=== PATIENT | female | born 1970 | race Caucasian/White ===

== ENCOUNTER 2020-03-23 19:51 | Emergency (ER) | payer BC ==
[~2020-03-23] VITALS: Ht 170.2 cm; Wt 63.5 kg
[2020-03-23 20:05] VITALS: BP_SYST 122
--- NOTE | 2020-03-23 20:10 | NUR ---
Patient to ER bed 4 to gown for evaluation. Side rails up. Report given to JANUARY.
--- NOTE | 2020-03-23 20:14 | NUR ---
Patient came from home. C/O abdominal pain x today. Patient states " constipation, today abdominal pain, no passing gas, called PMD and recommended to go to ER, Last Bowel movement 14 days ago " Hx Lupus, ileostomy, Bilateral 1 rib removal, , Hysterectomy, Breast Augmentation, Rectopexy. A/O,X4, abdominal pain, pain rate 9/10, place patient on master yacht.
[2020-03-23] MEDS ORDERED: DICY10CA13 PO (20:39)
[2020-03-23] MEDS ORDERED: FLUD0.1T PO (20:39)
[2020-03-23] MEDS ORDERED: NEU400 PO (20:39)
[2020-03-23] MEDS ORDERED: HYDR2TAB4 PO (20:39)
[2020-03-23] MEDS ORDERED: HYOS0.1275 PO (20:39)
[2020-03-23] MEDS ORDERED: ALPR1TAB2 PO (20:39)
[2020-03-23] MEDS ORDERED: TIZA4TAB11 PO (20:39)
[2020-03-23] MEDS ORDERED: TRAZ300T2 PO (20:39)
[2020-03-23] MEDS ORDERED: METH12VI SQ (20:39)
[2020-03-23] MEDS ORDERED: MIDO10TA PO (20:39)
--- NOTE | 2020-03-23 20:39 | NUR ---
Medication reconciliation completed with information provided by patient. Any prior medication reconciliation on file was reviewed and corrected.
[2020-03-23] MEDS ORDERED: METOCLOPRAMIDE HCL 10 MG/2 ML VIAL IVP ONE (21:00)
--- NOTE | 2020-03-23 21:03 | NUR ---
Blood for labwork drawn from sample puller. Patient tolerated well.
[2020-03-23 21:14] LABS: BASOPHILS % (AUTO) 0.4 % (0.0-2.0); EOSINOPHILS # (AUTO) 0.1 K/uL (0.0-0.4); EOSINOPHILS % (AUTO) 1.2 % (0.0-4.0); HEMATOCRIT 37.2 % (36-48); HEMOGLOBIN 12.1 g/dL (12.0-16.0); LYMPHOCYTES # (AUTO) 0.9 K/uL (1.0-5.5); LYMPHOCYTES % (AUTO) 13.3 % (20.5-51.5); MEAN CORPUSCULAR HEMOGLOBIN 28 pg (27-31); MEAN CORPUSCULAR HGB CONC 33 % (32-36); MEAN CORPUSCULAR VOLUME 87 fL (79.0-98.0); MONOCYTES # (AUTO) 0.4 K/uL (0.0-1.0); MONOCYTES % (AUTO) 6.7 % (1.7-9.3); NEUTROPHILS # (AUTO) 5.1 K/uL (1.8-7.7); NEUTROPHILS % (AUTO) 78.4 % (40.0-70.0); PLATELET COUNT (AUTO) 355 K/uL (130-430); RED BLOOD CELL COUNT(AUTO) 4.28 MIL/uL (4.2-6.2); RED CELL DISTRIBUTION WIDTH 16.7 % (9.0-15.0); WHITE BLOOD COUNT (AUTO) 6.6 K/uL (4.8-10.8)
--- NOTE | 2020-03-23 21:20 | NUR ---
ER at bedside examining patient.
[2020-03-23] MEDS ORDERED: NACL 0.9% 1,000 ML IV ONE (21:30)
[2020-03-23] MEDS ORDERED: KETAMINE 30 MG/3 ML SYRINGE IVP ONE (21:30)
--- NOTE | 2020-03-23 21:59 | NUR ---
Patient came back from CT scan.
[2020-03-23 22:02] LABS: BILIRUBIN,URINE NEGATIVE (NEGATIVE); BLOOD, URINE NEGATIVE (NEGATIVE); COLOR,URINE YELLOW (YELLOW); GLUCOSE,URINE NEGATIVE (NEGATIVE); KETONES,URINE TRACE (NEGATIVE); LEUKOCYTE ESTERASE ,URINE NEGATIVE (NEGATIVE); NITRITE, URINE NEGATIVE (NEGATIVE); PROTEIN URINE TRACE (NEGATIVE); UROBILINOGEN,URINE 0.2 (0.2-1.0)
[2020-03-23 22:23] LABS: CALCIUM 8.6 mg/dL (8.4-11.0); CREATININE 0.91 mg/dL (0.55-1.30); POTASSIUM 3.9 mmol/L (3.5-5.1)
[2020-03-23 22:29] LABS: CLARITY/URINE HAZY (CLEAR)
[2020-03-23 22:34] LABS: ALBUMIN 3.2 g/dL (3.4-4.8); TOTAL BILIRUBIN 0.3 mg/dL (0.0-1.0)
[2020-03-23 22:47] LABS: BACTERIA,URINE FEW /HPF (None Seen); MUCUS,URINE 4+ /LPF (None Seen); RBC,URINE 0-3 /HPF (0-3); WBC,URINE 0-3 /HPF (0-3)
--- NOTE | 2020-03-23 23:27 | NUR ---
Patient called her for a ride.
--- NOTE | 2020-03-23 23:46 | NUR ---
Patient's family waited in lobby.
[2020-03-23 23:54] VITALS: BP_SYST 113
--- NOTE | 2020-03-23 23:54 | NUR ---
Patient given written and verbal discharge instructions and verbalizes understanding. ER MD discussed with patient the results and treatment provided. Patient in stable condition. ID arm band removed. IV catheter removed intact and dressing applied, no active bleeding. No Rx given. Patient educated on pain management and to follow up with PMD. Pain Scale 2/10. Opportunity for questions provided and answered. Medication side effect fact sheet provided.
== END 2020-03-23 23:54 | disposition home or self-care (01) ==
LOC: SED 19:51
DX: K59.00 Constipation, unspecified (principal); R10.84 Generalized abdominal pain; Z90.710 Acquired absence of both cervix and uterus; Z79.899 Other long term (current) drug therapy; Z88.6 Allergy status to analgesic agent
CPT/HCPCS: 36415; 74021; 80053; 81000; 81025; 83690; 84702; 85025; 96374; 96375; 99284; J2765; J7030

== ENCOUNTER 2021-05-08 19:08 | Inpatient (IN) | payer BC, SELFPAY ==
[~2021-05-08] VITALS: Ht 170.2 cm; Wt 66.2 kg
[~2021-05-08 19:08] MED LIST: ALPR1TAB2 PO; DICY10CA13 PO; FLUD0.1T PO; HYDR2TAB4 PO; HYOS0.1275 PO; METH12VI SQ; MIDO10TA PO; NEU400 PO; TRAZ300T2 PO; ZAN4 PO
[2021-05-08 19:17] VITALS: BP_SYST 112
[2021-05-08 21:26] LABS: BILIRUBIN,URINE NEGATIVE (NEGATIVE); BLOOD, URINE NEGATIVE (NEGATIVE); CLARITY/URINE CLEAR (CLEAR); COLOR,URINE YELLOW (YELLOW); GLUCOSE,URINE NEGATIVE (NEGATIVE); KETONES,URINE NEGATIVE (NEGATIVE); LEUKOCYTE ESTERASE ,URINE NEGATIVE (NEGATIVE); NITRITE, URINE NEGATIVE (NEGATIVE); PROTEIN URINE NEGATIVE (NEGATIVE); UROBILINOGEN,URINE 0.2 (0.2-1.0)
[2021-05-08 21:52] LABS: BASOPHILS % (AUTO) 0.5 % (0.0-2.0); EOSINOPHILS # (AUTO) 0.1 K/uL (0.0-0.4); EOSINOPHILS % (AUTO) 1.8 % (0.0-4.0); HEMATOCRIT 39.4 % (36-48); HEMOGLOBIN 13.1 g/dL (12.0-16.0); LYMPHOCYTES # (AUTO) 1.4 K/uL (1.0-5.5); LYMPHOCYTES % (AUTO) 25.3 % (20.5-51.5); MEAN CORPUSCULAR HEMOGLOBIN 28 pg (27-31); MEAN CORPUSCULAR HGB CONC 33 % (32-36); MEAN CORPUSCULAR VOLUME 83 fL (79.0-98.0); MONOCYTES # (AUTO) 0.3 K/uL (0.0-1.0); NEUTROPHILS # (AUTO) 3.6 K/uL (1.8-7.7); NEUTROPHILS % (AUTO) 67.4 % (40.0-70.0); PLATELET COUNT (AUTO) 306 K/uL (130-430); RED BLOOD CELL COUNT(AUTO) 4.75 MIL/uL (4.2-6.2); RED CELL DISTRIBUTION WIDTH 16.4 % (9.0-15.0); WHITE BLOOD COUNT (AUTO) 5.4 K/uL (4.8-10.8)
[2021-05-08] MEDS ORDERED: HYDROmorphone 1 MG/ML INJ. CARTRIDGE IVP ONE ×2 (22:00→23:45)
[2021-05-08] MEDS ORDERED: PROCHLORPERAZINE EDISYLATE 10 MG/2 ML VIAL IVP ONE (22:00)
[2021-05-08 22:06] LABS: CALCIUM 9.8 mg/dL (8.4-11.0); CREATININE 0.73 mg/dL (0.55-1.30)
[2021-05-08 22:11] LABS: ALBUMIN 3.5 g/dL (3.4-4.8); TOTAL BILIRUBIN 0.3 mg/dL (0.0-1.0)
[2021-05-09] MEDS ORDERED: NACL 0.9% 1,000 ML IV ONE (00:15)
[2021-05-09] MEDS ORDERED: ONDANSETRON HCL 4 MG/2 ML VIAL IVP ONE (00:15)
[2021-05-09] MEDS: D5/0.45 NS 1,000 ML IV SCH ×3 (00:58→20:45)
[2021-05-09 03:09] VITALS: BP_SYST 127
[2021-05-09] MEDS ORDERED: MIDO5TAB4 PO (03:36)
[2021-05-09] MEDS ORDERED: TRAZ150T77 PO (03:36)
[2021-05-09] MEDS ORDERED: FLOR.1 PO (03:36)
[2021-05-09] MEDS ORDERED: HYDROmorphone 1 MG/ML INJ. CARTRIDGE IVP PRN (04:00)
[2021-05-09] MEDS ORDERED: ONDANSETRON HCL 4 MG/2 ML VIAL IVP PRN (04:00)
[2021-05-09] MEDS: HYDROmorphone 2 MG/ML VIAL IVP PRN ×4 (04:17→21:26)
[2021-05-09 06:19] LABS: BASOPHILS % (AUTO) 0.4 % (0.0-2.0); EOSINOPHILS # (AUTO) 0.1 K/uL (0.0-0.4); EOSINOPHILS % (AUTO) 2.9 % (0.0-4.0); HEMATOCRIT 34.9 % (36-48); HEMOGLOBIN 11.7 g/dL (12.0-16.0); LYMPHOCYTES # (AUTO) 1.7 K/uL (1.0-5.5); LYMPHOCYTES % (AUTO) 34.6 % (20.5-51.5); MEAN CORPUSCULAR HEMOGLOBIN 28 pg (27-31); MEAN CORPUSCULAR HGB CONC 33 % (32-36); MEAN CORPUSCULAR VOLUME 84 fL (79.0-98.0); MONOCYTES # (AUTO) 0.3 K/uL (0.0-1.0); NEUTROPHILS # (AUTO) 2.7 K/uL (1.8-7.7); NEUTROPHILS % (AUTO) 56.1 % (40.0-70.0); PLATELET COUNT (AUTO) 289 K/uL (130-430); RED BLOOD CELL COUNT(AUTO) 4.17 MIL/uL (4.2-6.2); RED CELL DISTRIBUTION WIDTH 16.4 % (9.0-15.0); WHITE BLOOD COUNT (AUTO) 4.8 K/uL (4.8-10.8)
[2021-05-09 06:48] LABS: ALBUMIN 2.8 g/dL (3.4-4.8); CALCIUM 8.3 mg/dL (8.4-11.0); CREATININE 0.66 mg/dL (0.55-1.30); POTASSIUM 3.9 mmol/L (3.5-5.1); TOTAL BILIRUBIN 0.3 mg/dL (0.0-1.0)
[2021-05-09] MEDS ORDERED: ACETAMINOPHEN 325 MG TABLET PO PRN (07:15)
[2021-05-09] MEDS ORDERED: DOCUSATE SODIUM 100 MG CAPSULE PO PRN (07:15)
[2021-05-09] MEDS ORDERED: HYOSCYAMINE SULFATE 0.125 MG TABLET PO PRN (07:15)
[2021-05-09] MEDS ORDERED: MIDAZOLAM HCL 5 MG/5 ML VIAL IVP ONE (07:50)
[2021-05-09] MEDS ORDERED: LIDOCAINE HCL/PF 1% 10 ML AMPUL INJ ONE (07:50)
[2021-05-09] MEDS ORDERED: PROPOFOL 200MG/ 20ML VIAL (DIPRIVAN) IV ONE (07:50)
[2021-05-09] MEDS ORDERED: NS 1000 ML IV.SOLN IV ONE (07:50)
[2021-05-09 08:22] VITALS: BP_SYST 118
[2021-05-09] MEDS ORDERED: GASTROGRAFIN 120 ML ONE ×2 (08:28→08:35)
[2021-05-09] MEDS ORDERED: METHYLNALTREXONE BROMIDE SQ SCH (09:00)
[2021-05-09 09:08] LABS: THYROID STIMULATING HORMONE 9.13 uIu/mL (0.36-3.74)
[2021-05-09] MEDS: ONDANSETRON HCL 4 MG/2 ML VIAL IVP PRN ×2 (10:24→17:27)
[2021-05-09] MEDS: FLUDROCORTISONE ACETATE 0.1 MG TABLET( FLORINEF) PO SCH (11:11)
[2021-05-09] MEDS: MIDODRINE HCL 5 MG TABLET (PROAMATINE) PO SCH (11:12)
[2021-05-09] MEDS: DICYCLOMINE HCL 10 MG CAPSULE PO SCH ×4 (11:13→21:01)
[2021-05-09] MEDS: GABAPENTIN 300 MG CAPSULE PO SCH ×3 (11:13→21:01)
[2021-05-09] MEDS: ALPRAZolam 0.25 MG TABLET PO SCH ×2 (11:13→21:02)
[2021-05-09] MEDS: tiZANidine HCL 4 MG TABLET PO SCH ×3 (11:18→21:02)
[2021-05-09] MEDS ORDERED: POLYETHYLENE GLYCOL 3350, 17 GM/ POWD.PACK PO ONE (11:45)
[2021-05-09 15:22] VITALS: BP_SYST 115
[2021-05-09 16:00] VITALS: BP_SYST 112
[2021-05-09] MEDS ORDERED: KETOROLAC TROMETHAMINE 30 MG VIAL IVP ONE (19:45)
[2021-05-09 20:00] VITALS: BP_SYST 133
[2021-05-09] MEDS: POLYETHYLENE GLYCOL 3350, 17 GM/ POWD.PACK PO SCH (21:02)
[2021-05-10] VITALS: BP_SYST 122
[2021-05-10] MEDS: HYDROmorphone 1 MG/ML INJ. CARTRIDGE IVP PRN ×2 (00:18→20:44)
[2021-05-10] MEDS: ONDANSETRON HCL 4 MG/2 ML VIAL IVP PRN ×3 (00:19→12:15)
[2021-05-10] MEDS: HYDROmorphone 2 MG/ML VIAL IVP PRN ×4 (02:18→15:14)
[2021-05-10] MEDS: D5/0.45 NS 1,000 ML IV SCH ×2 (06:16→16:57)
[2021-05-10 07:06] LABS: BASOPHILS % (AUTO) 0.6 % (0.0-2.0); CALCIUM 8.6 mg/dL (8.4-11.0); CREATININE 0.69 mg/dL (0.55-1.30); EOSINOPHILS # (AUTO) 0.1 K/uL (0.0-0.4); EOSINOPHILS % (AUTO) 3.1 % (0.0-4.0); HEMATOCRIT 40.8 % (36-48); HEMOGLOBIN 13.3 g/dL (12.0-16.0); LYMPHOCYTES # (AUTO) 1.1 K/uL (1.0-5.5); LYMPHOCYTES % (AUTO) 23.4 % (20.5-51.5); MEAN CORPUSCULAR HEMOGLOBIN 28 pg (27-31); MEAN CORPUSCULAR HGB CONC 33 % (32-36); MEAN CORPUSCULAR VOLUME 85 fL (79.0-98.0); MONOCYTES # (AUTO) 0.4 K/uL (0.0-1.0); NEUTROPHILS % (AUTO) 64.9 % (40.0-70.0); PHOSPHORUS 4.8 mg/dL (2.7-4.5); PLATELET COUNT (AUTO) 314 K/uL (130-430); POTASSIUM 3.3 mmol/L (3.5-5.1); RED BLOOD CELL COUNT(AUTO) 4.82 MIL/uL (4.2-6.2); RED CELL DISTRIBUTION WIDTH 16.1 % (9.0-15.0); WHITE BLOOD COUNT (AUTO) 4.7 K/uL (4.8-10.8)
[2021-05-10] MEDS: ALPRAZolam 0.25 MG TABLET PO SCH ×3 (09:00→20:46)
[2021-05-10 10:11] VITALS: BP_SYST 131
[2021-05-10] MEDS: POLYETHYLENE GLYCOL 3350, 17 GM/ POWD.PACK PO SCH (10:23)
[2021-05-10] MEDS: GABAPENTIN 300 MG CAPSULE PO SCH ×3 (10:23→20:46)
[2021-05-10] MEDS: FLUDROCORTISONE ACETATE 0.1 MG TABLET( FLORINEF) PO SCH (10:24)
[2021-05-10] MEDS: MIDODRINE HCL 5 MG TABLET (PROAMATINE) PO SCH (10:24)
[2021-05-10] MEDS: tiZANidine HCL 4 MG TABLET PO SCH ×3 (10:25→21:09)
[2021-05-10] MEDS: DICYCLOMINE HCL 10 MG CAPSULE PO SCH ×4 (10:25→20:46)
[2021-05-10] MEDS ORDERED: POTASSIUM CHLORIDE 20 MEQ/PKT PACKET PO ONE (14:15)
[2021-05-10] MEDS ORDERED: MAGNESIUM CITRATE 300 ML ORAL SOLUTION PO ONE (16:30)
[2021-05-10] MEDS ORDERED: PANTOPRAZOLE SODIUM 40 MG/VIAL (PROTONIX) IVP ONE (16:30)
[2021-05-10 20:00] VITALS: BP_SYST 128
[2021-05-10] MEDS: SIMETHICONE 80 MG TAB.CHEW PO SCH (20:44)
[2021-05-11] VITALS (7 sets, daily range): BP systolic 122–160
[2021-05-11] MEDS: HYDROmorphone 2 MG/ML VIAL IVP PRN ×5 (02:38→21:57)
[2021-05-11] MEDS: D5/0.45 NS 1,000 ML IV SCH ×3 (03:46→22:10)
[2021-05-11] MEDS: ONDANSETRON HCL 4 MG/2 ML VIAL IVP PRN ×2 (05:52→21:54)
[2021-05-11] MEDS: PANTOPRAZOLE SODIUM 40 MG/VIAL (PROTONIX) IVP SCH (10:36)
[2021-05-11] MEDS: FLUDROCORTISONE ACETATE 0.1 MG TABLET( FLORINEF) PO SCH (10:37)
[2021-05-11] MEDS: MIDODRINE HCL 5 MG TABLET (PROAMATINE) PO SCH (10:37)
[2021-05-11] MEDS: DICYCLOMINE HCL 10 MG CAPSULE PO SCH ×2 (10:37→21:40)
[2021-05-11] MEDS: SIMETHICONE 80 MG TAB.CHEW PO SCH ×3 (10:38→21:41)
[2021-05-11] MEDS: ALPRAZolam 0.25 MG TABLET PO SCH ×2 (10:38→21:41)
[2021-05-11] MEDS: POLYETHYLENE GLYCOL 3350, 17 GM/ POWD.PACK PO SCH (10:38)
[2021-05-11] MEDS: GABAPENTIN 300 MG CAPSULE PO SCH ×3 (10:38→21:41)
[2021-05-11] MEDS: tiZANidine HCL 4 MG TABLET PO SCH ×3 (11:40→21:41)
[2021-05-11] MEDS ORDERED: DICYCLOMINE HCL 10 MG CAPSULE PO ONE (13:45)
[2021-05-11] MEDS ORDERED: POTASSIUM CHLORIDE 10 MEQ TAB.PRT.SR PO ONE (19:30)
[2021-05-11] MEDS: ZOLPIDEM TARTRATE 5 MG TABLET PO PRN (21:42)
[2021-05-12] VITALS: BP_SYST 126
[2021-05-12] MEDS: HYDROmorphone 2 MG/ML VIAL IVP PRN ×3 (02:10→20:09)
[2021-05-12] MEDS: D5/0.45 NS 1,000 ML IV SCH ×2 (06:16→20:04)
[2021-05-12] MEDS: ONDANSETRON HCL 4 MG/2 ML VIAL IVP PRN (06:25)
[2021-05-12 07:23] LABS: CALCIUM 8.3 mg/dL (8.4-11.0); CREATININE 0.64 mg/dL (0.55-1.30); PHOSPHORUS 3.4 mg/dL (2.7-4.5); POTASSIUM 3.7 mmol/L (3.5-5.1)
[2021-05-12 08:00] VITALS: BP_SYST 119
[2021-05-12 08:26] LABS: BASOPHILS % (AUTO) 0.7 % (0.0-2.0); EOSINOPHILS # (AUTO) 0.5 K/uL (0.0-0.4); EOSINOPHILS % (AUTO) 11.1 % (0.0-4.0); HEMATOCRIT 34.2 % (36-48); HEMOGLOBIN 11.2 g/dL (12.0-16.0); LYMPHOCYTES # (AUTO) 1.7 K/uL (1.0-5.5); LYMPHOCYTES % (AUTO) 36.9 % (20.5-51.5); MEAN CORPUSCULAR HEMOGLOBIN 28 pg (27-31); MEAN CORPUSCULAR HGB CONC 33 % (32-36); MEAN CORPUSCULAR VOLUME 85 fL (79.0-98.0); MONOCYTES # (AUTO) 0.4 K/uL (0.0-1.0); MONOCYTES % (AUTO) 7.9 % (1.7-9.3); NEUTROPHILS % (AUTO) 43.4 % (40.0-70.0); PLATELET COUNT (AUTO) 266 K/uL (130-430); RED CELL DISTRIBUTION WIDTH 16.4 % (9.0-15.0); WHITE BLOOD COUNT (AUTO) 4.6 K/uL (4.8-10.8)
[2021-05-12] MEDS: GABAPENTIN 300 MG CAPSULE PO SCH ×3 (10:22→20:51)
[2021-05-12] MEDS: MIDODRINE HCL 5 MG TABLET (PROAMATINE) PO SCH (10:22)
[2021-05-12] MEDS: SIMETHICONE 80 MG TAB.CHEW PO SCH ×3 (10:22→20:51)
[2021-05-12] MEDS: DICYCLOMINE HCL 10 MG CAPSULE PO SCH ×2 (10:22→20:51)
[2021-05-12] MEDS: ALPRAZolam 0.25 MG TABLET PO SCH ×2 (10:22→20:51)
[2021-05-12] MEDS: tiZANidine HCL 4 MG TABLET PO SCH ×3 (10:22→20:51)
[2021-05-12] MEDS: POLYETHYLENE GLYCOL 3350, 17 GM/ POWD.PACK PO SCH (10:22)
[2021-05-12] MEDS: PANTOPRAZOLE SODIUM 40 MG/VIAL (PROTONIX) IVP SCH (10:25)
[2021-05-12] MEDS: FLUDROCORTISONE ACETATE 0.1 MG TABLET( FLORINEF) PO SCH (10:25)
[2021-05-12 12:00] VITALS: BP_SYST 158
[2021-05-12 16:00] VITALS: BP_SYST 159
[2021-05-12] MEDS ORDERED: BISACODYL 5 MG TABLET.DR (DULCOLAX) PO ONE (17:00)
[2021-05-13] MEDS: HYDROmorphone 2 MG/ML VIAL IVP PRN ×4 (00:04→20:17)
[2021-05-13] MEDS: ZOLPIDEM TARTRATE 5 MG TABLET PO PRN ×2 (00:15→21:52)
[2021-05-13 00:54] VITALS: BP_SYST 129
[2021-05-13] MEDS ORDERED: HYDROmorphone 2 MG/ML VIAL IVP ONE (05:45)
[2021-05-13 06:43] LABS: BASOPHILS % (AUTO) 0.4 % (0.0-2.0); EOSINOPHILS # (AUTO) 0.3 K/uL (0.0-0.4); EOSINOPHILS % (AUTO) 5.7 % (0.0-4.0); HEMATOCRIT 36.2 % (36-48); HEMOGLOBIN 11.9 g/dL (12.0-16.0); LYMPHOCYTES # (AUTO) 1.8 K/uL (1.0-5.5); LYMPHOCYTES % (AUTO) 29.5 % (20.5-51.5); MEAN CORPUSCULAR HEMOGLOBIN 28 pg (27-31); MEAN CORPUSCULAR HGB CONC 33 % (32-36); MEAN CORPUSCULAR VOLUME 84 fL (79.0-98.0); MONOCYTES # (AUTO) 0.4 K/uL (0.0-1.0); MONOCYTES % (AUTO) 6.3 % (1.7-9.3); NEUTROPHILS # (AUTO) 3.5 K/uL (1.8-7.7); NEUTROPHILS % (AUTO) 58.1 % (40.0-70.0); PLATELET COUNT (AUTO) 336 K/uL (130-430); RED BLOOD CELL COUNT(AUTO) 4.33 MIL/uL (4.2-6.2); RED CELL DISTRIBUTION WIDTH 16.1 % (9.0-15.0); WHITE BLOOD COUNT (AUTO) 6.1 K/uL (4.8-10.8)
[2021-05-13 07:18] LABS: CALCIUM 8.3 mg/dL (8.4-11.0); CREATININE 0.71 mg/dL (0.55-1.30); PHOSPHORUS 2.9 mg/dL (2.7-4.5); POTASSIUM 3.2 mmol/L (3.5-5.1)
[2021-05-13] MEDS: D5/0.45 NS 1,000 ML IV SCH ×2 (07:49→11:27)
[2021-05-13 08:00] VITALS: BP_SYST 135
[2021-05-13] MEDS: PANTOPRAZOLE SODIUM 40 MG/VIAL (PROTONIX) IVP SCH (08:45)
[2021-05-13] MEDS: DICYCLOMINE HCL 10 MG CAPSULE PO SCH ×2 (08:46→21:52)
[2021-05-13] MEDS: ALPRAZolam 0.25 MG TABLET PO SCH ×2 (08:46→21:52)
[2021-05-13] MEDS: MIDODRINE HCL 5 MG TABLET (PROAMATINE) PO SCH (08:47)
[2021-05-13] MEDS: POLYETHYLENE GLYCOL 3350, 17 GM/ POWD.PACK PO SCH (08:47)
[2021-05-13] MEDS: SIMETHICONE 80 MG TAB.CHEW PO SCH ×3 (08:47→21:52)
[2021-05-13] MEDS: FLUDROCORTISONE ACETATE 0.1 MG TABLET( FLORINEF) PO SCH (08:48)
[2021-05-13] MEDS: GABAPENTIN 300 MG CAPSULE PO SCH ×3 (08:48→21:51)
[2021-05-13] MEDS: tiZANidine HCL 4 MG TABLET PO SCH ×3 (08:48→21:51)
[2021-05-13] MEDS ORDERED: POLYETHYLENE GLYCOL 3350, 17 GM/ POWD.PACK PO ONE (12:00)
[2021-05-13 12:02] VITALS: BP_SYST 152
[2021-05-13] MEDS ORDERED: POTASSIUM CHLORIDE 20 MEQ/PKT PACKET PO ONE (12:15)
[2021-05-13] MEDS: ONDANSETRON HCL 4 MG/2 ML VIAL IVP PRN (14:29)
[2021-05-13 16:01] VITALS: BP_SYST 151
[2021-05-13] MEDS ORDERED: BISACODYL 5 MG TABLET.DR (DULCOLAX) PO ONE (17:00)
[2021-05-13] MEDS ORDERED: MAGNESIUM CITRATE 300 ML ORAL SOLUTION PO ONE (19:00)
[2021-05-13 20:00] VITALS: BP_SYST 141
[2021-05-14] VITALS: BP_SYST 129
[2021-05-14] MEDS: HYDROmorphone 2 MG/ML VIAL IVP PRN ×2 (00:32→06:42)
[2021-05-14 07:56] LABS: BASOPHILS % (AUTO) 0.8 % (0.0-2.0); EOSINOPHILS # (AUTO) 0.3 K/uL (0.0-0.4); EOSINOPHILS % (AUTO) 5.5 % (0.0-4.0); HEMATOCRIT 39.6 % (36-48); HEMOGLOBIN 13.1 g/dL (12.0-16.0); LYMPHOCYTES # (AUTO) 1.5 K/uL (1.0-5.5); MEAN CORPUSCULAR HEMOGLOBIN 28 pg (27-31); MEAN CORPUSCULAR HGB CONC 33 % (32-36); MEAN CORPUSCULAR VOLUME 84 fL (79.0-98.0); MONOCYTES # (AUTO) 0.3 K/uL (0.0-1.0); MONOCYTES % (AUTO) 5.5 % (1.7-9.3); NEUTROPHILS # (AUTO) 3.2 K/uL (1.8-7.7); NEUTROPHILS % (AUTO) 60.2 % (40.0-70.0); PLATELET COUNT (AUTO) 306 K/uL (130-430); RED CELL DISTRIBUTION WIDTH 16.2 % (9.0-15.0); WHITE BLOOD COUNT (AUTO) 5.3 K/uL (4.8-10.8)
[2021-05-14 07:59] LABS: CALCIUM 8.8 mg/dL (8.4-11.0); CREATININE 0.68 mg/dL (0.55-1.30); PHOSPHORUS 3.6 mg/dL (2.7-4.5); POTASSIUM 3.4 mmol/L (3.5-5.1)
[2021-05-14 08:00] VITALS: BP_SYST 137
[2021-05-14] MEDS: PANTOPRAZOLE SODIUM 40 MG/VIAL (PROTONIX) IVP SCH (08:27)
[2021-05-14] MEDS: DICYCLOMINE HCL 10 MG CAPSULE PO SCH ×2 (08:27→21:21)
[2021-05-14] MEDS: GABAPENTIN 300 MG CAPSULE PO SCH ×3 (08:27→21:19)
[2021-05-14] MEDS: FLUDROCORTISONE ACETATE 0.1 MG TABLET( FLORINEF) PO SCH (08:28)
[2021-05-14] MEDS: POLYETHYLENE GLYCOL 3350, 17 GM/ POWD.PACK PO SCH (08:28)
[2021-05-14] MEDS: tiZANidine HCL 4 MG TABLET PO SCH ×3 (08:29→21:21)
[2021-05-14] MEDS: ALPRAZolam 0.25 MG TABLET PO SCH ×2 (08:29→21:20)
[2021-05-14] MEDS: SIMETHICONE 80 MG TAB.CHEW PO SCH ×3 (08:29→21:20)
[2021-05-14] MEDS: MIDODRINE HCL 5 MG TABLET (PROAMATINE) PO SCH (08:40)
[2021-05-14] MEDS: ONDANSETRON HCL 4 MG/2 ML VIAL IVP PRN (08:40)
[2021-05-14] MEDS ORDERED: ACETAMINOPHEN 325 MG TABLET PO PRN (09:00)
[2021-05-14] MEDS ORDERED: SORBITOL 70% SOLUTION, 30 ML UDBTL PO ONE (09:00)
[2021-05-14] MEDS ORDERED: ONDANSETRON HCL 4 MG/2 ML VIAL IVP PRN (09:00)
[2021-05-14] MEDS ORDERED: MAGNESIUM CITRATE 300 ML ORAL SOLUTION PO SCH (09:00)
[2021-05-14] MEDS ORDERED: POTASSIUM CHLORIDE 20 MEQ TAB.PRT.SR PO ONE (09:00)
[2021-05-14] MEDS ORDERED: ZOLPIDEM TARTRATE 5 MG TABLET PO PRN (09:00)
[2021-05-14] MEDS ORDERED: MAGNESIUM SULFATE 50 ML IV PRN (09:00)
[2021-05-14] MEDS: POTASSIUM CHLORIDE 20 MEQ TAB.PRT.SR PO SCH (09:00)
[2021-05-14] MEDS ORDERED: DOCUSATE SODIUM 100 MG CAPSULE PO PRN (09:00)
[2021-05-14] MEDS ORDERED: MUPIROCIN 2% TOPICAL OINTMENT 22 GM NS PRN (09:00)
[2021-05-14] MEDS ORDERED: POLYETHYLENE GLYCOL 3350, 17 GM/ POWD.PACK PO ONE (09:00)
[2021-05-14] MEDS ORDERED: BISACODYL 5 MG TABLET.DR (DULCOLAX) PO SCH (09:00)
[2021-05-14] MEDS ORDERED: NALOXONE HCL 0.4 MG/ML AMP (NARCAN) IVP PRN (09:15)
[2021-05-14] MEDS: D5/0.45 NS 1,000 ML IV SCH ×2 (10:38→20:05)
[2021-05-14] MEDS: HYDROmorphone 1 MG/ML INJ. CARTRIDGE IVP PRN ×2 (13:25→19:53)
[2021-05-14 16:51] LABS: BARBITURATE, URINE NEGATIVE (NEG <=200); BENZODIAZEPINE, URINE POSITIVE (NEG <=150); CANNABINOID, URINE NEGATIVE (NEG <=50); COCAINE, URINE NEGATIVE (NEG <=150); METHAMPHETAMINES SCREEN,URINE NEGATIVE (NEG <=500); OPIATE, URINE POSITIVE (NEG <=100); PHENCYCLIDINE SCREEN,URINE NEGATIVE (NEG <=25); UR TRICYCLIC ANTIDEPRESSANTS NEGATIVE (NEG <=300); URINE AMPHETAMINE NEGATIVE (NEG <=500); URINE METHADONE NEGATIVE (NEG <=200); URINE OXYCODONE SCREEN NEGATIVE (NEG <=100); URINE PROPOXYPHENE SCREEN NEGATIVE (NEG <=300)
[2021-05-14] MEDS ORDERED: MAGNESIUM CITRATE 300 ML ORAL SOLUTION PO ONE (18:00)
[2021-05-14 19:49] VITALS: BP_SYST 129
[2021-05-15 01:42] VITALS: BP_SYST 114
[2021-05-15] MEDS: HYDROmorphone 1 MG/ML INJ. CARTRIDGE IVP PRN ×3 (01:47→16:23)
[2021-05-15] MEDS: ZOLPIDEM TARTRATE 5 MG TABLET PO PRN (02:43)
[2021-05-15] MEDS: D5/0.45 NS 1,000 ML IV SCH (06:49)
[2021-05-15] MEDS ORDERED: SIMETHICONE 40 MG/0.6 ML ML ONE (07:12)
[2021-05-15 07:51] LABS: BASOPHILS % (AUTO) 0.2 % (0.0-2.0); EOSINOPHILS # (AUTO) 0.2 K/uL (0.0-0.4); HEMATOCRIT 36.5 % (36-48); HEMOGLOBIN 12.1 g/dL (12.0-16.0); LYMPHOCYTES # (AUTO) 1.4 K/uL (1.0-5.5); LYMPHOCYTES % (AUTO) 28.7 % (20.5-51.5); MEAN CORPUSCULAR HEMOGLOBIN 28 pg (27-31); MEAN CORPUSCULAR HGB CONC 33 % (32-36); MEAN CORPUSCULAR VOLUME 84 fL (79.0-98.0); MONOCYTES # (AUTO) 0.3 K/uL (0.0-1.0); MONOCYTES % (AUTO) 6.3 % (1.7-9.3); NEUTROPHILS # (AUTO) 2.9 K/uL (1.8-7.7); NEUTROPHILS % (AUTO) 59.8 % (40.0-70.0); PLATELET COUNT (AUTO) 278 K/uL (130-430); RED BLOOD CELL COUNT(AUTO) 4.35 MIL/uL (4.2-6.2); WHITE BLOOD COUNT (AUTO) 4.9 K/uL (4.8-10.8)
[2021-05-15 08:09] LABS: CALCIUM 8.3 mg/dL (8.4-11.0); CREATININE 0.66 mg/dL (0.55-1.30); POTASSIUM 3.1 mmol/L (3.5-5.1)
[2021-05-15] MEDS ORDERED: ONDANSETRON HCL 4 MG/2 ML VIAL IVP PRN (09:00)
[2021-05-15] MEDS: POLYETHYLENE GLYCOL 3350, 17 GM/ POWD.PACK PO SCH (09:00)
[2021-05-15 09:32] VITALS: BP_SYST 161
[2021-05-15] MEDS: PANTOPRAZOLE SODIUM 40 MG/VIAL (PROTONIX) IVP SCH (10:30)
[2021-05-15] MEDS: FLUDROCORTISONE ACETATE 0.1 MG TABLET( FLORINEF) PO SCH (10:31)
[2021-05-15] MEDS: POTASSIUM CHLORIDE 20 MEQ TAB.PRT.SR PO SCH (10:31)
[2021-05-15] MEDS: GABAPENTIN 300 MG CAPSULE PO SCH ×2 (10:31→15:16)
[2021-05-15] MEDS: DICYCLOMINE HCL 10 MG CAPSULE PO SCH (10:31)
[2021-05-15] MEDS: ALPRAZolam 0.25 MG TABLET PO SCH (10:31)
[2021-05-15] MEDS: tiZANidine HCL 4 MG TABLET PO SCH ×2 (10:32→15:16)
[2021-05-15] MEDS: SIMETHICONE 80 MG TAB.CHEW PO SCH ×2 (10:32→15:15)
[2021-05-15] MEDS: MIDODRINE HCL 5 MG TABLET (PROAMATINE) PO SCH (11:01)
[2021-05-15 12:08] VITALS: BP_SYST 165
[2021-05-15 15:23] VITALS: BP_SYST 157
== END 2021-05-15 17:40 | disposition home or self-care (01) | DRG 392 ==
LOC: SED 19:08 → SMU 05-09 00:36
PROVIDERS: ADMIT Family Medicine; ATTEND Family Medicine
PROC: 05HY33Z Insertion of Infusion Device into Upper Vein, Percutaneous Approach (ICD-10-PCS; 2021-05-12)
PROC: B54MZZA Ultrasonography of Right Upper Extremity Veins, Guidance (ICD-10-PCS; 2021-05-12)
PROC: 0DB68ZX Excision of Stomach, Via Natural or Artificial Opening Endoscopic, Diagnostic (ICD-10-PCS; 2021-05-15)
PROC: 0DB58ZX Excision of Esophagus, Via Natural or Artificial Opening Endoscopic, Diagnostic (ICD-10-PCS; 2021-05-15)
PROC: 0DJD8ZZ Inspection of Lower Intestinal Tract, Via Natural or Artificial Opening Endoscopic (ICD-10-PCS; principal; 2021-05-15 07:30)
PROC: 0DB98ZX Excision of Duodenum, Via Natural or Artificial Opening Endoscopic, Diagnostic (ICD-10-PCS; 2021-05-15 07:30)
DX: K59.03 Drug induced constipation (principal); F11.20 Opioid dependence, uncomplicated; K62.6 Ulcer of anus and rectum; K56.7 Ileus, unspecified; Q43.8 Other specified congenital malformations of intestine; K21.00 Gastro-esophageal reflux disease with esophagitis, without bleeding; K59.09 Other constipation; T40.2X5A Adverse effect of other opioids, initial encounter; K29.70 Gastritis, unspecified, without bleeding; K64.8 Other hemorrhoids; F41.1 Generalized anxiety disorder; G89.4 Chronic pain syndrome; Z20.822 Contact with and (suspected) exposure to COVID-19; Z88.0 Allergy status to penicillin; Z90.49 Acquired absence of other specified parts of digestive tract; Z88.2 Allergy status to sulfonamides; Z88.5 Allergy status to narcotic agent; Z88.8 Allergy status to other drugs, medicaments and biological substances; Z90.710 Acquired absence of both cervix and uterus; Z98.891 History of uterine scar from previous surgery
CPT/HCPCS: 36415; 71045; 74018; 74250-TC; 76376; 80048; 80053; 80061; 80307; 81003; 82150; 83036; 83690; 83735; 83880; 84100; 84439; 84443; 85025; 85610-TC; 85730-TC; 87081; 88305; 88312; 88313; 93005; 96374; 96375; 96376; 99285; C9113; J0780; J1170; J1885; J2001; J2250; J2405; J2704; J7030; Q9963

== ENCOUNTER 2021-11-07 19:35 | Emergency (ER) | payer BC, SELFPAY ==
[~2021-11-07 19:35] MED LIST changes: +FLOR.1 PO; -FLUD0.1T PO; -MIDO10TA PO; +MIDO5TAB4 PO; +TRAZ150T77 PO; -TRAZ300T2 PO
[2021-11-08] MEDS ORDERED: HYDROmorphone 1 MG/ML INJ. CARTRIDGE ONE (01:23)
== END 2021-11-07 19:50 | disposition left against medical advice (07) ==
LOC: CANPREER → SED 19:35
DX: R51.9 Headache, unspecified (principal); Z53.21 Procedure and treatment not carried out due to patient leaving prior to being seen by health care provider
CPT/HCPCS: J1170

== ENCOUNTER 2021-11-07 20:32 | Inpatient (IN) | payer BC, SELFPAY ==
[~2021-11-07] VITALS: Ht 170.2 cm; Wt 71.7 kg
[2021-11-07 20:48] VITALS: BP_SYST 123
--- NOTE | 2021-11-07 21:13 | NUR ---
Placed in room 3 . Placed on panel monitor, blood pressure machine and pulse oximeter. To gown for exam. Side rails up.
--- NOTE | 2021-11-07 21:31 | NUR ---
PT A&O X4, VERBAL, AMBULATORY, NO SOB/ DISTRESS, WITH C/O HEADACHE FOR ABOUT 24HRS NOW, PT STATED THAT SHE TOOK ALL HER MEDICATIONS FOR HEADACHE & NOT WORKING.
[2021-11-07] MEDS ORDERED: NACL 0.9% 1,000 ML IV ONE (22:30)
[2021-11-07] MEDS ORDERED: KETOROLAC TROMETHAMINE 30 MG VIAL IVP ONE (22:30)
[2021-11-07 23:29] LABS: BASOPHILS % (AUTO) 0.5 % (0.0-2.0); EOSINOPHILS # (AUTO) 0.1 K/uL (0.0-0.4); EOSINOPHILS % (AUTO) 0.9 % (0.0-4.0); HEMOGLOBIN 13.2 g/dL (12.0-16.0); LYMPHOCYTES # (AUTO) 1.4 K/uL (1.0-5.5); LYMPHOCYTES % (AUTO) 22.7 % (20.5-51.5); MEAN CORPUSCULAR HEMOGLOBIN 26 pg (27-31); MEAN CORPUSCULAR HGB CONC 32 % (32-36); MEAN CORPUSCULAR VOLUME 81 fL (79.0-98.0); MONOCYTES # (AUTO) 0.3 K/uL (0.0-1.0); MONOCYTES % (AUTO) 5.1 % (1.7-9.3); NEUTROPHILS # (AUTO) 4.3 K/uL (1.8-7.7); NEUTROPHILS % (AUTO) 70.8 % (40.0-70.0); PLATELET COUNT (AUTO) 339 K/uL (130-430); RED BLOOD CELL COUNT(AUTO) 5.07 MIL/uL (4.2-6.2); RED CELL DISTRIBUTION WIDTH 16.7 % (9.0-15.0); WHITE BLOOD COUNT (AUTO) 6.1 K/uL (4.8-10.8)
[2021-11-07 23:42] LABS: BILIRUBIN,URINE NEGATIVE (NEGATIVE); BLOOD, URINE NEGATIVE (NEGATIVE); CLARITY/URINE CLEAR (CLEAR); COLOR,URINE YELLOW (YELLOW); GLUCOSE,URINE NEGATIVE (NEGATIVE); KETONES,URINE NEGATIVE (NEGATIVE); LEUKOCYTE ESTERASE ,URINE NEGATIVE (NEGATIVE); NITRITE, URINE NEGATIVE (NEGATIVE); PROTEIN URINE NEGATIVE (NEGATIVE); UROBILINOGEN,URINE 0.2 (0.2-1.0)
[2021-11-07 23:42] LABS: CALCIUM 8.8 mg/dL (8.4-11.0); CREATININE 0.67 mg/dL (0.55-1.30)
[2021-11-07 23:48] LABS: ALBUMIN 3.3 g/dL (3.4-4.8); TOTAL BILIRUBIN 0.2 mg/dL (0.0-1.0)
[2021-11-08] MEDS ORDERED: HYDROmorphone 1 MG/ML INJ. CARTRIDGE IVP ONE ×2 (00:45→03:00)
--- NOTE | 2021-11-08 02:15 | NUR ---
WENT TO CT SCAN.
--- NOTE | 2021-11-08 02:20 | NUR ---
BACK FROM CT SCAN.
--- NOTE | 2021-11-08 02:25 | NUR ---
Swabbed for MIKE.Sent to the lab.
[2021-11-08] MEDS ORDERED: NACL 0.9% 1,000 ML IV ONE (03:00)
--- NOTE | 2021-11-08 03:11 | NUR ---
gave report to Idania/SANIYA, pt a&o x4, verbal, ambulatory, no sob/ distress, no c/o pain at this time, vss.
[2021-11-08] MEDS ORDERED: HYDROmorphone 1 MG/ML INJ. CARTRIDGE ONE (03:16)
[2021-11-08 05:51] VITALS: BP_SYST 118
[2021-11-08] MEDS ORDERED: HYDROmorphone 2 MG TAB PO SCH (06:45)
[2021-11-08] MEDS ORDERED: KETOROLAC TROMETHAMINE 30 MG VIAL IVP ONE (06:45)
--- NOTE | 2021-11-08 07:34 | NUR ---
CONSULT: DAYANA INTRACTABLE HEADACHE SENT TEXT TO DR. COLLIER
[2021-11-08 08:00] VITALS: BP_SYST 143
[2021-11-08] MEDS ORDERED: METHYLNALTREXONE BROMIDE SQ SCH (09:00)
[2021-11-08] MEDS ORDERED: NALOXONE HCL 0.4 MG/ML AMP (NARCAN) IVP PRN (09:00)
[2021-11-08] MEDS ORDERED: HYDROmorphone 2 MG/ML VIAL IVP PRN (09:00)
[2021-11-08] MEDS ORDERED: HYOSCYAMINE SULFATE 0.125 MG TABLET PO PRN (09:00)
[2021-11-08] MEDS ORDERED: ALPRAZolam 0.25 MG TABLET PO ONE (09:15)
[2021-11-08] MEDS ORDERED: HYDROmorphone 2 MG TAB PO ONE (09:15)
[2021-11-08] MEDS ORDERED: tiZANidine HCL 4 MG TABLET PO ONE (09:15)
[2021-11-08] MEDS ORDERED: DICYCLOMINE HCL 10 MG CAPSULE PO ONE (09:15)
--- NOTE | 2021-11-08 09:21 | NUR ---
CONSULT: Star NAUSEA/VOMITING DR. M[facility]IN [facility] [phone] S/W: CHUN
[2021-11-08] MEDS ORDERED: FLUDROCORTISONE ACETATE 0.1 MG TABLET( FLORINEF) PO ONE (09:30)
[2021-11-08] MEDS ORDERED: GABAPENTIN 300 MG CAPSULE PO ONE (09:30)
[2021-11-08] MEDS: D5/0.45 NS 1,000 ML IV SCH ×2 (10:26→20:00)
[2021-11-08] MEDS ORDERED: MIDODRINE HCL 5 MG TABLET (PROAMATINE) PO ONE (10:45)
[2021-11-08 12:00] VITALS: BP_SYST 144
[2021-11-08] MEDS ORDERED: methylPREDNISolone SOD SUCC/PF 62.5 MG/ML VIAL IVP ONE (12:30)
[2021-11-08] MEDS ORDERED: METOCLOPRAMIDE HCL 10 MG/2 ML VIAL IVP ONE (12:30)
[2021-11-08] MEDS ORDERED: MAGNESIUM SULFATE 1 GM/2 ML VIAL IV ONE (12:30)
[2021-11-08] MEDS: DICYCLOMINE HCL 10 MG CAPSULE PO SCH ×3 (12:56→20:40)
[2021-11-08] MEDS ORDERED: MAGNESIUM SULFATE 50 ML IV ONE (13:00)
--- NOTE | 2021-11-08 13:19 | NUR ---
CONSULT: Patrick CASTRO [phone] S/W: [facility]
[2021-11-08] MEDS: tiZANidine HCL 4 MG TABLET PO SCH ×2 (14:58→20:40)
[2021-11-08] MEDS: GABAPENTIN 300 MG CAPSULE PO SCH ×2 (14:58→20:40)
[2021-11-08] MEDS: MIDODRINE HCL 5 MG TABLET (PROAMATINE) PO SCH ×2 (15:00→20:41)
[2021-11-08 16:00] VITALS: BP_SYST 110
[2021-11-08] MEDS: HYDROmorphone 2 MG TAB PO SCH (16:58)
[2021-11-08] MEDS ORDERED: traZODone HCL 50 MG TABLET (DESYREL) ONE ×2 (20:25→20:26)
[2021-11-08] MEDS: HYDROmorphone 2 MG/ML VIAL IVP PRN (20:37)
--- NOTE | 2021-11-08 20:40 | NUR ---
PAIN MED IV Dilaudid 2 mg given PRN for pain 03/29, complaint of headache.
[2021-11-08] MEDS: ALPRAZolam 0.25 MG TABLET PO SCH (20:41)
[2021-11-08 20:50] VITALS: BP_SYST 134
[2021-11-08] MEDS ORDERED: IOHEXOL 350 mgI/mL, 150 ML INFUS..BTL IV ONE (20:59)
[2021-11-08] MEDS ORDERED: traZODone HCL 50 MG TABLET (DESYREL) PO SCH (21:00)
--- NOTE | 2021-11-08 21:44 | NUR ---
opening note patient called nursing station that she still had a headache and would like PRN pain medication for break though pain. patient stated pain was 8/10 located at the back of her head. RN gave medication. vitals taken and patient tolerated 2100 medication. call light was within reach and bed was placed at lowest setting.
[2021-11-08 22:00] VITALS: BP_SYST 134
[2021-11-09] MEDS: HYDROmorphone 2 MG TAB PO SCH ×3 (00:10→17:41)
[2021-11-09 00:29] VITALS: BP_SYST 124
[2021-11-09] MEDS: D5/0.45 NS 1,000 ML IV SCH ×2 (05:00→19:10)
[2021-11-09] MEDS: HYDROmorphone 2 MG/ML VIAL IVP PRN ×3 (05:40→22:11)
--- NOTE | 2021-11-09 05:45 | NUR ---
PAIN MED IV Dilaudid given for 8/10 pain.
[2021-11-09 06:36] LABS: BASOPHILS % (AUTO) 0.4 % (0.0-2.0); EOSINOPHILS % (AUTO) 0.1 % (0.0-4.0); HEMATOCRIT 38.5 % (36-48); HEMOGLOBIN 12.5 g/dL (12.0-16.0); LYMPHOCYTES % (AUTO) 14.9 % (20.5-51.5); MEAN CORPUSCULAR HEMOGLOBIN 26 pg (27-31); MEAN CORPUSCULAR HGB CONC 32 % (32-36); MEAN CORPUSCULAR VOLUME 81 fL (79.0-98.0); MONOCYTES # (AUTO) 0.4 K/uL (0.0-1.0); MONOCYTES % (AUTO) 5.9 % (1.7-9.3); NEUTROPHILS # (AUTO) 5.5 K/uL (1.8-7.7); NEUTROPHILS % (AUTO) 78.7 % (40.0-70.0); PLATELET COUNT (AUTO) 271 K/uL (130-430); RED BLOOD CELL COUNT(AUTO) 4.75 MIL/uL (4.2-6.2); RED CELL DISTRIBUTION WIDTH 16.5 % (9.0-15.0)
[2021-11-09 06:58] LABS: ALBUMIN 3.1 g/dL (3.4-4.8); CALCIUM 8.6 mg/dL (8.4-11.0); CREATININE 0.56 mg/dL (0.55-1.30); POTASSIUM 4.1 mmol/L (3.5-5.1); TOTAL BILIRUBIN 0.1 mg/dL (0.0-1.0)
[2021-11-09 08:00] VITALS: BP_SYST 108
[2021-11-09] MEDS: DICYCLOMINE HCL 10 MG CAPSULE PO SCH ×4 (08:56→21:08)
[2021-11-09] MEDS: FLUDROCORTISONE ACETATE 0.1 MG TABLET( FLORINEF) PO SCH (08:57)
[2021-11-09] MEDS: GABAPENTIN 300 MG CAPSULE PO SCH ×3 (08:58→21:07)
[2021-11-09] MEDS: ALPRAZolam 0.25 MG TABLET PO SCH ×2 (08:58→21:08)
[2021-11-09] MEDS: MIDODRINE HCL 5 MG TABLET (PROAMATINE) PO SCH ×3 (08:58→21:00)
[2021-11-09] MEDS: tiZANidine HCL 4 MG TABLET PO SCH ×3 (08:58→21:08)
[2021-11-09 12:00] VITALS: BP_SYST 99
[2021-11-09] MEDS ORDERED: methylPREDNISolone 4 MG TABLET PO ONE (12:00)
[2021-11-09] MEDS ORDERED: MAGNESIUM OXIDE 400 MG TABLET PO ONE (12:15)
--- NOTE | 2021-11-09 12:47 | NUR ---
PAIN PT COMPLAINED OF A HEADACHE, DILAUDID 2 MG IVP GIVEN, ALL LIGHTS TURNED OFF PT DESIRED.
--- NOTE | 2021-11-09 13:30 | NUR ---
NURSING PT SITTING UP IN BED, NO COMPLAINTS OF DISCOMFORTS, CALL LIGHT IN REACH.
[2021-11-09] MEDS ORDERED: ONDANSETRON HCL 4 MG/2 ML VIAL IVP PRN (15:15)
[2021-11-09 16:00] VITALS: BP_SYST 126
[2021-11-09 20:00] VITALS: BP_SYST 143
[2021-11-09] MEDS: MAGNESIUM OXIDE 400 MG TABLET PO SCH (21:08)
--- NOTE | 2021-11-09 22:00 | NUR ---
PAGED DR. KAIDEN Solomon ON HIS PERSONAL PAGER
--- NOTE | 2021-11-09 22:16 | NUR ---
PAIN MED Dilaudid given for 9/10 headache.
[2021-11-10] MEDS: D5/0.45 NS 1,000 ML IV SCH ×2 (00:14→11:39)
[2021-11-10] MEDS: HYDROmorphone 2 MG TAB PO SCH ×3 (00:18→17:26)
[2021-11-10 00:34] VITALS: BP_SYST 133
--- NOTE | 2021-11-10 02:20 | NUR ---
PAGED DR. KAIDEN Solomon ON HIS PERSONAL PAGER
--- NOTE | 2021-11-10 03:00 | NUR ---
PAGED I PAGED DR. KAIDEN Solomon. I PAGED DR. RICHEY TWICE ON HIS PERSONAL PAGED THIS IS MY FIRST PAGED ON HIS EXCHANGE NUMBER I SPOKE WITH OSBALDO HUIZAR
[2021-11-10] MEDS ORDERED: ZOLPIDEM TARTRATE 5 MG TABLET PO PRN (03:15)
[2021-11-10] MEDS: HYDROmorphone 2 MG/ML VIAL IVP PRN ×3 (04:11→15:43)
--- NOTE | 2021-11-10 04:15 | NUR ---
c/o pain / Diluadid Patient reporting severe headache along with generalized body pain. Dilaudid given as ordered. Reviewed side effects and she verbalized understanding.
[2021-11-10 07:07] LABS: BASOPHILS % (AUTO) 0.4 % (0.0-2.0); EOSINOPHILS % (AUTO) 0.2 % (0.0-4.0); HEMATOCRIT 35.6 % (36-48); HEMOGLOBIN 11.4 g/dL (12.0-16.0); LYMPHOCYTES # (AUTO) 1.1 K/uL (1.0-5.5); LYMPHOCYTES % (AUTO) 17.5 % (20.5-51.5); MEAN CORPUSCULAR HEMOGLOBIN 26 pg (27-31); MEAN CORPUSCULAR HGB CONC 32 % (32-36); MEAN CORPUSCULAR VOLUME 81 fL (79.0-98.0); MONOCYTES # (AUTO) 0.3 K/uL (0.0-1.0); MONOCYTES % (AUTO) 5.2 % (1.7-9.3); NEUTROPHILS # (AUTO) 4.7 K/uL (1.8-7.7); NEUTROPHILS % (AUTO) 76.7 % (40.0-70.0); PLATELET COUNT (AUTO) 162 K/uL (130-430); RED BLOOD CELL COUNT(AUTO) 4.41 MIL/uL (4.2-6.2); RED CELL DISTRIBUTION WIDTH 16.3 % (9.0-15.0); WHITE BLOOD COUNT (AUTO) 6.2 K/uL (4.8-10.8)
[2021-11-10 07:52] LABS: ALBUMIN 2.9 g/dL (3.4-4.8); CALCIUM 7.7 mg/dL (8.4-11.0); CREATININE 0.69 mg/dL (0.55-1.30); POTASSIUM 3.5 mmol/L (3.5-5.1); TOTAL BILIRUBIN 0.1 mg/dL (0.0-1.0)
[2021-11-10 08:00] VITALS: BP_SYST 134
[2021-11-10] MEDS ORDERED: POLYETHYLENE GLYCOL 3350, 17 GM/ POWD.PACK PO SCH (09:00)
[2021-11-10] MEDS ORDERED: DOCUSATE SODIUM 100 MG CAPSULE PO SCH (09:00)
[2021-11-10] MEDS: MIDODRINE HCL 5 MG TABLET (PROAMATINE) PO SCH ×2 (09:02→15:40)
[2021-11-10] MEDS: MAGNESIUM OXIDE 400 MG TABLET PO SCH (09:02)
[2021-11-10] MEDS: tiZANidine HCL 4 MG TABLET PO SCH ×2 (09:02→15:41)
[2021-11-10] MEDS: GABAPENTIN 300 MG CAPSULE PO SCH ×2 (09:02→15:41)
[2021-11-10] MEDS: FLUDROCORTISONE ACETATE 0.1 MG TABLET( FLORINEF) PO SCH (09:02)
[2021-11-10] MEDS: ALPRAZolam 0.25 MG TABLET PO SCH (09:02)
[2021-11-10] MEDS: DICYCLOMINE HCL 10 MG CAPSULE PO SCH ×3 (09:03→17:27)
[2021-11-10] MEDS ORDERED: methylPREDNISolone 4 MG TABLET PO ONE (12:00)
[2021-11-10] MEDS ORDERED: METOCLOPRAMIDE HCL 10 MG TABLET PO PRN (12:15)
[2021-11-10 13:16] VITALS: BP_SYST 133
[2021-11-10] MEDS ORDERED: POLY17PO4 PO (13:50)
[2021-11-10] MEDS ORDERED: MAGN400T10 PO (13:50)
[2021-11-10] MEDS ORDERED: DOCU-144 PO (13:50)
[2021-11-10] MEDS ORDERED: MED4 PO (13:50)
[2021-11-10] MEDS ORDERED: METO-290 PO (13:50)
[2021-11-10] MEDS ORDERED: ONDA-8 TL (13:50)
--- NOTE | 2021-11-10 17:00 | NUR ---
Patient was educated about discharge orders per MD, patient had no further questions noted at the moment, will reinforce if needed throughout the shift. Signed all the discharge papers, clarified questions without any problem. No further questions noted at the moment.
[2021-11-10 18:08] VITALS: BP_SYST 136
--- NOTE | 2021-11-10 18:20 | NUR ---
D/C Patient Patient given medication reconciliation form and D/C instructions. Exit Care provided. Patient verbalized understanding. MD discussed with patient the results and treatment provided. Ambulatory with steady gait for discharge to home. Patient in stable condition, ID band removed. MIDLINE catheter removed, intact and dressing applied, no active bleeding. ERx given per MD. Patient educated on pain management. All belongings sent with patient. Patient had no further questions noted at the moment, discharged with notes for further details.
[2021-11-11] MEDS ORDERED: methylPREDNISolone 4 MG TABLET PO ONE ×2 (12:00)
[2021-11-12] MEDS ORDERED: methylPREDNISolone 4 MG TABLET PO ONE (12:00)
[2021-11-13] MEDS ORDERED: methylPREDNISolone 4 MG TABLET PO ONE (12:00)
[2021-11-14] MEDS ORDERED: methylPREDNISolone 4 MG TABLET PO ONE (12:00)
== END 2021-11-10 18:19 | disposition home or self-care (01) | DRG 178 ==
LOC: SED 20:32 → SMU 11-08 02:10
PROVIDERS: ADMIT Preventive Medicine Preventive Medicine/Occupational Environmental Medicine; ATTEND Preventive Medicine Preventive Medicine/Occupational Environmental Medicine
PROC: 05HY33Z Insertion of Infusion Device into Upper Vein, Percutaneous Approach (ICD-10-PCS; principal; 2021-11-08)
PROC: B54NZZA Ultrasonography of Left Upper Extremity Veins, Guidance (ICD-10-PCS; 2021-11-08)
DX: U07.1 COVID-19 (principal); E44.1 Mild protein-calorie malnutrition; F11.20 Opioid dependence, uncomplicated; M32.9 Systemic lupus erythematosus, unspecified; G89.4 Chronic pain syndrome; G90.8 Other disorders of autonomic nervous system; G43.909 Migraine, unspecified, not intractable, without status migrainosus; K59.00 Constipation, unspecified; G90.1 Familial dysautonomia [Riley-Day]; D64.9 Anemia, unspecified; Z88.0 Allergy status to penicillin; Z88.2 Allergy status to sulfonamides; Z88.8 Allergy status to other drugs, medicaments and biological substances; Z79.899 Other long term (current) drug therapy; Z88.5 Allergy status to narcotic agent; Z90.710 Acquired absence of both cervix and uterus; Z93.2 Ileostomy status; Z68.24 Body mass index [BMI] 24.0-24.9, adult
CPT/HCPCS: 36415; 70450-TC; 70496; 71045; 76376; 80048; 80053; 81003; 85025; 96374; 96375; 99285; J1170; J1885; J2405; J2765; J2930; J3475; J7509; Q9967